=== PATIENT | female | born 1955 | race Caucasian/White ===

== ENCOUNTER → 2020-06-13 17:59 | Outpatient (CLI) | payer MEDICARE, OTHER, SELFPAY ==
--- NOTE | ~2020-06-13 | XR_ITS ---
EXAMINATION: XR foot LT min 3V DATE: 06/13/2020 18:19 INDICATION: Dorsal left forefoot pain post blunt trauma one month prior TECHNIQUE: Dorsoplantar, two oblique and lateral views of the left foot were obtained. COMPARISON: None. FINDINGS: Alignment is normal. No fracture. Minimal polyarticular osteoarthritis at several joints the mid and forefoot. Small plantar calcaneal spur. Soft tissues are unremarkable. IMPRESSION: 1. No acute osseous abnormality. Reviewed, dictated and finalized at location A. 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
== END ==
PROVIDERS: PCP Internal Medicine; Visit Provider Internal Medicine
DX: S99.922A Unspecified injury of left foot, initial encounter (principal)
CPT/HCPCS: 73630

== ENCOUNTER 2021-04-26 09:13 | Outpatient (CLI) | payer MEDICARE, OTHER, SELFPAY ==
--- NOTE | ~2021-04-26 | CT_ITS ---
EXAMINATION: CT abdomen pelvis w con DATE: 04/26/2021 10:10 INDICATION: Right abdominal and pelvic pain TECHNIQUE: Computed tomography (CT) of the abdomen and pelvis was performed with 100 cc Omnipaque 350 intravenous contrast. Automated exposure control and iterative reconstruction technique were employe d. Exam dose: 663.59 mGy-cm total exam DLP. COMPARISON: 12/01/2017 CT abdomen pelvis FINDINGS: There is bibasilar lower lobe mild dependent atelectasis. Normal heart size. No pericardial or pleural effusion. 6 mm left hepatic cyst. Status post cholecystectomy. This likely accounts for mild prominence of the bile ducts. Normal splenic size. No pancreatic mass lesion or calcification or pancreatic duct dilatation. Normal morphology of the adrenal glands. 3 mm nonobstructing right renal calculus. No other urinary tract calculus or hydroureteronephrosis. The urinary bladder, uterus and adnexal areas are essentially unremarkable although visualization is compromised to some extent by streak artifact from the right hip replacement. Normal caliber of the abdominal aorta. No intraperitoneal or retroperitoneal or pelvic mass lesion or adenopathy or ascites. Postoperative change of the right colon. No bowel obstruction or intraperitoneal free air. Small fat-containing umbilical hernia. Status post right total hip arthroplasty. There is moderate degenerative disc disease and 3 mm anterolisthesis at L3-4. There is 2 mm retrolist hesis at L4-5, with mild degenerative disc disease. No suspicious osteolytic or osteoblastic lesions are noted. IMPRESSION: 6 mm hepatic cyst Status post cholecystectomy 3 mm nonobstructing right renal calculus Postoperative change of the right colon; no bowel obstruction or free air Status post right total hip arthroplasty Reviewed, dictated and finalized at Location A. Reviewed, dictated and finalized at location B.
--- NOTE | ~2021-04-26 | US_ITS ---
EXAMINATION: US pelvic complete w TV EXAM DATE: 04/26/2021 10:05 INDICATION: Right-sided pelvic pain. Abdominal pain. TECHNIQUE: Pelvic transabdominal and transvaginal sonogram was performed. There are multiple graysca le and Doppler images available for interpretation. Correlation is made to CT abdomen pelvis same melissa e.. FINDINGS: Uterus measures 5.8 x 3.0 x 4.2 cm, and is morphologically normal. Endometrial stripe maday sures 3 mm, within normal limits. There is no free pelvic fluid. Right adnexa: The right ovary is normal in size and morphology. Left adnexa: The left ovary is normal in size and morphology. IMPRESSION: 1. Unremarkable pelvic ultrasound exam. Reviewed, dictated and finalized at location A.
[2021-04-26 10:07] LABS: Estimated Glomerular Filt Rate > 60
[2021-04-26 10:34] LABS: Basophils Percent Auto 0.4 % (0.2-1.2); Eosinophils Percent Auto 0.4 % (0-4.4); Hematocrit 40.6 % (37.0-47.0); Hemoglobin 13.4 g/dL (12.0-15.0); Immature Granulocyte Absolute 0.01 K/mm3 (0.00-0.031); Immature Granulocyte Percent A 0.2 % (0-0.5); Lymphocytes Absolute Auto 1.57 K/mm3 (0.9-3.2); Lymphocytes Percent Auto 35.1 % (18.3-44.2); Mean Corpuscular Hemoglobin 30.2 pg (26-34); Mean Corpuscular Volume 91.6 fl (80-100); Mean Platelet Volume 10.3 fl (7.4-10.4); Monocytes Absolute Auto 0.4 K/mm3 (0.1-0.6); Monocytes Percent Auto 9.8 % (2.6-8.5); Neutrophils Absolute Auto 2.4 K/mm3 (1.3-6.7); Neutrophils Percent Auto 54.1 % (45.5-73.1); Platelet Count Result 189 k/mm3 (150-375); Red Blood Count 4.43 M/mm3 (4.2-5.4); Red Cell Distribution Width 13.2 % (11.5-14.5); White Blood Count 4.5 K/mm3 (4.5-10.0)
[2021-04-26 10:58] LABS: Add Urine Microscopic? NO; Appearance Urine Clear (Clear); Bilirubin Urine Negative (Negative); Blood Urine Negative (Negative); Color Urine Colorless (Yellow); Glucose Urine UA Negative (Negative); Ketones Urine Negative (Negative); Leukocyte Esterase Ur Negative LEU/UL (NEGATIVE); Nitrate Urine Negative (Negative); Protein Urine Negative (Negative); Specific Grav Ur 1.027 (1.001-1.035); Urobilinogen Urine Negative mg/dL (<2.0)
[2021-04-26 11:04] LABS: Alanine Aminotransferase 19 U/L (4-35); Albumin Level 4.4 g/dL (3.5-5.1); Alkaline Phosphatase 58 U/L (38-126); Amylase 63 U/L (30-110); Anion Gap 6 mmol/L (8-16); Aspartate Amino Transferase 25 U/L (14-36); Bilirubin,Total 0.7 mg/dL (0.2-1.3); Blood Urea Nitrogen 13 mg/dL (7-17); Calcium 9.6 mg/dL (8.4-10.2); Carbon Dioxide 30 mmol/L (22-30); Chloride 102 mmol/L (98-107); Estimated Glomerular Filt Rate > 60; Glucose 95 mg/dL (65-110); Potassium 4.2 mmol/L (3.4-5.0); Sodium 138 mmol/L (137-145)
[2021-04-26 11:27] LABS: Lipase 45 U/L (23-300)
== END 2021-04-26 09:14 | disposition home or self-care (01) ==
LOC: ANHIMG 09:16
PROVIDERS: PCP Internal Medicine; Visit Provider Internal Medicine
DX: R10.31 Right lower quadrant pain (principal); K76.89 Other specified diseases of liver; Z90.49 Acquired absence of other specified parts of digestive tract; N20.0 Calculus of kidney; Z96.641 Presence of right artificial hip joint
CPT/HCPCS: 74177; 76830; 76856; 80053; 81003; 82150; 83690; 85025; Q9967

== ENCOUNTER → 2021-12-05 16:21 | Outpatient (CLI) | payer MEDICARE, OTHER, SELFPAY ==
--- NOTE | ~2021-12-05 | XR_ITS ---
XR knee LT min 4V 12/05/2021 16:43 Indication: Left knee pain Procedure: 5 views of the left knee Comparison: No prior studies for comparison. Findings: There is mild osteoarthritis of the left knee. No significant joint effusion. No fracture o r traumatic malalignment. Impression: 1: Mild osteoarthritis of the left knee. Reviewed, dictated and finalized at location A. Impression: 1: Mild osteoarthritis of the left knee.
== END ==
PROVIDERS: PCP Internal Medicine; Visit Provider Internal Medicine
DX: M17.12 Unilateral primary osteoarthritis, left knee (principal)
CPT/HCPCS: 73564

== ENCOUNTER 2021-12-22 11:41 | Outpatient (CLI) | payer MEDICARE, OTHER, SELFPAY ==
--- NOTE | ~2021-12-22 | US_ITS ---
EXAMINATION: US venous doppler [facility] DATE: 12/22/2021 12:13 INDICATION: Left lower limb swelling TECHNIQUE: Gore scale images without and with compression and Doppler images of the left lower extrem ity veins were obtained. COMPARISON: None FINDINGS: The left common femoral vein, profunda femoral vein, femoral vein, popliteal vein, peroneal trunk, posterior tibial veins, and greater saphenous vein are patent. IMPRESSION: 1. Patent left lower extremity veins. No evidence of deep venous thrombosis. Reviewed, dictated and finalized at location A.
== END 2021-12-22 11:42 | disposition home or self-care (01) ==
LOC: ANHIMG 11:46
PROVIDERS: PCP Internal Medicine; Visit Provider Internal Medicine
DX: M79.652 Pain in left thigh (principal); I83.90 Asymptomatic varicose veins of unspecified lower extremity
CPT/HCPCS: 93971

== ENCOUNTER 2021-12-30 12:29 | Outpatient (CLI) | payer MEDICARE, OTHER, SELFPAY ==
--- NOTE | ~2021-12-30 | MR_ITS ---
EXAMINATION: MR knee LT wo con DATE: 12/30/2021 13:29 INDICATION: Left knee pain. Possible meniscal tear. TECHNIQUE: Magnetic resonance imaging (MRI) of the left knee was performed without intravenous contra st. Sequences included coronal PD-weighted FSE, coronal PD-weighted FS FSE, sagittal T2-weighted FSE , sagittal PD-weighted FS FSE and axial PD weighted fat saturated FSE. COMPARISON: Left knee radiographs dated 12/01/2021 FINDINGS: Medial compartment: Complex tear of the body and posterior horn of the medial meniscus. Partial-thickness chondral ulcera tion involving up to 50% the cartilage thickness along the anterior weightbearing medial femoral cond yle. Small focus of likely degenerative in particular edema-like signal change along the medial rim o f the posterior weightbearing medial femoral condyle. Lateral compartment: Lateral meniscus is normal. Additional partial thickness chondral ulceration involving up to 50% the cartilage thickness at the central aspect of the lateral tibial plateau. Patellofemoral compartment: Deep chondral ulceration and fissuring with degenerative subchondral changes at the medial patellar f acet and patellar apical ridge. The cervical chains included. Tiny foci of edema-like signal change a t the medial facet and cortical irregularity and more prominent subarticular edema-like signal change at the cephalad half of the apical ridge. Small amount of more shallow partial thickness chondral fi ssuring along the medial side of the lateral patellar facet. Deep chondral fissuring with small centr al subchondral osteophytes at the inferior aspect of the medial trochlea. Ligaments and tendons: Anterior and posterior cruciate ligaments are normal. Mild thickening of the proximal medial collater al ligament without surrounding edema consistent with mild scarring related to chronic sprain. The fi bular collateral ligament complex is normal. The extensor mechanism is normal. The visualized medial and lateral hamstring tendons as well as the iliotibial band are normal. Fluid: Physiologic amount of fluid in the joint space. No loose osteochondral bodies identified. Osseous/other: Aside from the with previous noted scattered degenerative subarticular changes there is normal marrow signal throughout. No fracture or abnormal marrow replacing process. IMPRESSION: 1. Complex medial meniscal tear. 2. 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 Reviewed, dictated and finalized at location B. IMPRESSION: 1. Complex medial meniscal tear. 2. Mild tricompartmental osteoarthritis most notable for high-grade chondromala lavinia in the patellofemoral compartment.
== END 2021-12-30 12:30 | disposition home or self-care (01) ==
PROVIDERS: PCP Internal Medicine; Visit Provider Internal Medicine
DX: S83.232A Complex tear of medial meniscus, current injury, left knee, initial encounter (principal); X58.XXXA Exposure to other specified factors, initial encounter; M17.12 Unilateral primary osteoarthritis, left knee
CPT/HCPCS: 73721

== ENCOUNTER → 2022-01-10 10:18 | Outpatient (CLI) | payer MEDICARE, OTHER, SELFPAY ==
--- NOTE | ~2022-01-10 | XR_ITS ---
XR small bowel follow through DATE: 01/10/2022 16:50 INDICATION: Abdominal pain. History of 2 prior distal small bowel resections TECHNIQUE: Serial images of the abdomen after oral administration of barium. Spot images of the ileoc olic area. DAP: 8.738 0.5 minutes fluoroscopy time 14 total images COMPARISON: 04/26/2021 CT abdomen pelvis FINDINGS: Surgical clips, right upper quadrant, consistent with cholecystectomy. When Bowel sutures, right lower quadrant, consistent with ileocolic anastomosis; history of prior distal s mall bowel resections x2. Normal caliber of the small bowel. Normal mucosal pattern of the small bowel. No small bowel strictur e, obstruction, intraluminal mass lesion, ulceration. Barium reaches the ileocolic area by 4 hours IMPRESSION: Relatively slow transit of contrast material, particularly through the distal small bowel No small bowel obstruction or dilatation, stricture, ulceration or filling defect Status post cholecystectomy Status post right total hip arthroplasty Reviewed, dictated and finalized at Location A. Reviewed, dictated and finalized at location B. IMPRESSION: Relatively slow transit of contrast material, particularly through the distal small bowel No small bowel obstruction or dilatation, stricture, ulceration or filling defe ct Status post cholecystectomy Status post right total hip arthroplasty
== END ==
PROVIDERS: PCP Internal Medicine; Visit Provider Internal Medicine
DX: R10.9 Unspecified abdominal pain (principal); Z90.49 Acquired absence of other specified parts of digestive tract; Z96.641 Presence of right artificial hip joint
CPT/HCPCS: 74250

== ENCOUNTER 2022-03-05 01:44 | Day surgery (SDC) | payer MEDICARE, OTHER, SELFPAY ==
--- NOTE | 2022-02-27 12:37 | PC.NURSE ---
Report to the Outpatient Waiting Room, entrance under the green pavilion located off [facility], at time on date . OR Time: . - You and your visitor will be asked to self-screen and do not enter if you have any COVID symptoms. - Only one visitor and NO children visitors are allowed at this time. - The patient visitor is requested to leave or wait in car when not with patient due to restrictions. - A mask is required within the hospital. Patients may have clear liquids (water, carbonated beverages, clear teas, apple juice) until 3 hours prior to surgery with a maximum of 20 ounces. - No food from midnight until time of surgery - Infants may have breast milk until 4 hours before surgery, formula 6 hours prior to surgery. - Children will be allowed to drink immediately following surgery. If applicable, please bring a bottle or sippy cup to assist with drinking. Juice, water, soda, and popsicles are readily available. For infants on formula, please bring formula the day of surgery. Pacifiers are allowed. Take the following medications with a SIP of water the morning of surgery: ___LEVOTHYROXINE AND LIOTHYRONINE Medications to discontinue per physician ___ALL VITAMINS/SUPPLEMENTS/PROBIOTIC 3 DAYS PRE OP Date to take last dose_03/01/22 Please no make-up, nail romanian, hairspray, perfume, deodorant, or body powder the day of surgery. No jewelry (including any body piercings) or valuables the day of surgery, leave them at home. Please take a shower or bath the night before, or the morning of, surgery with an antibacterial soap. Wear comfortable, loose fitting clothing. Children are encouraged to wear pajamas. - Jewelry must be removed prior to entering the operating room. Rings and piercings that are not removed may be cut off. - The hospital will not accept responsibility for valuables. - Please leave all valuables, including medications, at home the day of surgery. If you are going home after surgery, a licensed front end driver must drive you home. - NO public transportation without another adult. - We recommend that an adult stay with you for 24 hours following discharge. - We also recommend that you do not drive, make important decision, drink alcoholic beverages, or take any drugs that were not prescribed by your health care provider for at least 24 hours after your discharge time. For Pediatric surgeries, we recommend two adults accompany the child home (only one inside the building at this time). Follow any additional instructions given to you from your surgeon. If you or anyone in your household have experienced Covid symptoms in the past week, please notify your surgeon or the nurse liaison at the phone number below for possible testing. Telephone instructions given to _PATIENT and asked if any additional questions and then verbalized understanding. Patient advised to call surgeon office or pre surgery nurse liaison [phone] if any additional questions.
[2022-02-27 12:43] VITALS: BMI 27.2
[2022-03-05] VITALS (8 sets, daily range): BP systolic 125–143; BP diastolic 69–86; PULSE 46–72; RESP 12–20; TEMP 36.2–36.7; O2SAT 99–100
--- NOTE | 2022-03-05 07:46 | ECG_ITS ---
Measurements Intervals [place] Rate: 59 P: 0 CO: 147 QRS: -2 QRSD: 98 T: 53 QT: 411 QTc: 410 Interpretive Statements SINUS BRADYCARDIA BORDERLINE ECG NO PREVIOUS ECG AVAILABLE FOR COMPARISON Electronically Signed On 03-05-2022 16:21:15 CDT by Crescencio Cordero M.D.
--- NOTE | 2022-03-05 08:10 | WPDANESEPPF ---
Anes - Initial Pre Proc Eval Procedure: Operation Date: 03/05/22 09:30 Proposed Procedures p Left Knee Arthroscopy with Meniscectomy - Charli Odonnell MD Date/Time: 03/05/22 08:10 Surgeon: Charli Odonnell MD Pre Op Diagnosis: Lt Knee Medial Meniscus Tear Patient Data Age: 66 Gender: F Height: 1.68 m Weight: 77.2 kg Last Vital Signs Temp 36.2 C L 03/05/22 07:45 Pulse 60 03/05/22 07:45 Resp 20 03/05/22 07:45 BP 125/70 03/05/22 07:45 Pulse Ox 100 03/05/22 07:45 O2 Del Method Room Air 03/05/22 07:45 Allergies Allergy/AdvReac Type Severity Reaction Status Date / Time Sulfa (Sulfonamide Allergy Mild Rash Verified 03/05/22 07:39 Antibiotics) Home Medications Medication Instructions Recorded Confirmed Type levothyroxine 100 mcg tablet 100 mcg PO DAILY 05/15/19 03/05/22 History liothyronine 50 mcg tablet 50 mcg PO DAILY 05/15/19 03/05/22 History ascorbic acid (vitamin C) 500 mg 500 mg PO DAILY 02/27/22 03/05/22 History tablet ibuprofen 400 mg tablet 400 mg PO Q6H PRN Pain 02/27/22 03/05/22 History lactobacillus combination no.8 3 3 cell PO DAILY 02/27/22 03/05/22 History billion cell capsule multivitamin 1 tablet PO DAILY 02/27/22 03/05/22 History Patient hx anesthesia problems: none Family hx anesthesia problems: none Results Review: All pre-operative results and documents have been reviewed as part of the pre-operative evaluation. [facility] Past Medical History Medical History (Updated 03/05/22 @ 08:10 by Jose M Woo DO) Heart murmur Hypothyroidism IBS (irritable bowel syndrome) Tear of medial meniscus of left knee Thyroid disorder TIA (transient ischemic attack) Surgical History Surgical History History of bowel resection History of cholecystectomy History of hip replacement Family History Family History Father Heart disease Hypertension Mother Hypertension Family history of thyroid disease Sibling Family history of thyroid disease Grandparent Hypertension Heart disease Family history of cancer Social History Social History Smoking status: Never smoker Alcohol intake: current Drinks per week: 4 Substance use: never Living arrangements: with family 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 Informed Consent: The patient's anesthetic plan and its attendant risks and benefits were discussed with the patient/family/POA. Questions were solicited and answers provided to the satisfaction of the patient/family/POA.
[2022-03-05] MEDS: ACETAMINOPHEN 500 MG TABLET 1000 MG PO (08:23)
[2022-03-05] MEDS: LACTATED RINGERS 1,000 ML 30 ML IV CONT (08:30)
[2022-03-05] MEDS: KETOROLAC 15 MG/ML VIAL (*BKC) IV PUSH (08:32)
--- NOTE | 2022-03-05 08:39 | WPDHPUPDATE1 ---
History and Physical Update Update Date/Time: 03/05/22 08:39 History and Physical has been reviewed, including an updated exam of the patient. There are NO changes in the patient's condition. Risks, benefits, and alternatives have been discussed and questions answered. Patient agrees to proceed with procedure.
[2022-03-05] MEDS: ceFAZolin 2 GM/D5W 50 ML 2 GM/50 ML BAG IVPB (09:07)
--- NOTE | 2022-03-05 10:10 | W.PM.PROC2 ---
Procedure Note - Detailed Date of Procedure 03/05/22 Pre-op Diagnosis Lt Knee Medial Meniscus Tear Post-op Diagnosis Other (Left knee medial and lateral meniscal tears) Procedure Performed Left knee arthroscopy with partial medial lateral meniscectomy. Partial synovectomy. Surgeon Charli Odonnell MD Anesthesia General Description of Procedure The patient was identified and proper site identified and she was taken to the operating room, transferred to the OR table placing her supine taking care to pad the torso and extremities. After general anesthetic induction and intubation, a nonsterile tourniquet was placed high on the left thigh but was not used. The left lower extremity was positioned, prepped and draped in usual sterile fashion. 10 cc of 1% lidocaine was injected into the subcutaneous tissue in the area of the portals at start of the procedure, and an additional 10 at the end. The portals were established and the arthroscopy was carried out. Articular cartilage in the medial and anterior compartments had extensive grade 2, bordering on grade 3 changes. Loose fibrillated cartilage was gently debrided with the shaver. Lateral articular cartilage was in good shape. There was fraying throughout the apex of the lateral meniscus which was contoured back to a more stable meniscal rim with the ArthroCare Wand. Anterior posterior cruciate ligaments are in continuity. Gutters were clear. There was some exuberant inflamed synovium overlying the anterior horn of the medial meniscus which was getting impinged as the knee was taken through range of motion. This was debrided with a shaver then the ArthroCare Wand for hemostasis. There was complex tearing of the medial meniscus from the posterior horn into the midbody. This was contoured back to a stable rim with basket forceps and a shaver. The knee was flushed with a copious amount of arthroscopic fluid and equipment was removed. Portals were closed with three O nylon suture and a sterile dressing was applied. She tolerated the procedure well, was awakened, extubated and taken to recovery area in stable condition. There were no known intraoperative complications. Estimated blood loss was negligible; she received perioperative antibiotics. Estimated Blood Loss 10 Tourniquet Time 0 Drains No Packing No Pathology None sent Complications No immediate complications Condition Stable Disposition PACU
[2022-03-05] MEDS: fentaNYL CITRATE INJ (*CRX) 100 MCG/2 ML VIAL 25 MCG IV PUSH ×2 (10:28→10:31)
== END 2022-03-05 12:00 | disposition home or self-care (01) ==
PROVIDERS: PCP Internal Medicine; Visit Provider Orthopaedic Surgery
PROC: (CPT 29870; principal; 2022-03-05 09:30)
DX: M23.212 Derangement of anterior horn of medial meniscus due to old tear or injury, left knee (principal); M17.12 Unilateral primary osteoarthritis, left knee; M65.862 Other synovitis and tenosynovitis, left lower leg; K58.9 Irritable bowel syndrome, unspecified; R01.1 Cardiac murmur, unspecified; R00.1 Bradycardia, unspecified; Z86.73 Personal history of transient ischemic attack (TIA), and cerebral infarction without residual deficits; E03.9 Hypothyroidism, unspecified
CPT/HCPCS: 29880; 93005; A9270; J0690; J1100; J1885; J2250; J2405; J2704; J3010; J7120

== ENCOUNTER 2022-03-14 08:30 | Outpatient (RCR) | payer MEDICARE, OTHER, SELFPAY ==
--- NOTE | 2022-03-07 11:26 | PTOPEVAL ---
Thank you for referring Paula Bosch to [facility].? She is scheduled to be seen for therapy? 2 x/week for 4 weeks. Please review, sign, date and return this plan of care PILI. I agree with and certify that the following plan of care is medically necessary. Referring Physician Date Attending Provider: Charli Odonnell MD Past Medical History Source of Past Medical History Recalled from Previous Visit, Confirmed with Patient/Family Neurological History Hx Transient Ischemic Attacks (TIA) Yes: no residual effects Cardiovascular History Hx Other Cardiac Disorders Yes: DR CHOI EVERY 6 MONTHS- LOOP RECORDER IN PLACE SINCE 2019 Respiratory History Hx COVID-19 Yes: 01/20/2022 Gastrointestinal History Hx Bowel Surgery Yes: 2001 BOWEL RESECTION R/T OBSTRUCTION Hx Cholecystectomy Yes Hx Irritable Bowel Yes Hx Ulcer Yes Genitourinary History Hx Genitourinary Disorders No Significant History Musculoskeletal History Hx Fractures Yes: HAND R Hx Joint Replacement Yes: 2009 R THR Hx Other Musculoskeletal Disorders Yes Hematological History Hx Blood Transfusions Yes: POST BOWEL RESECTION Endocrine History Hx Hypothyroidism Yes HEENT History Hx HEENT Disorders No Significant History Integumentary History Hx Skin Disorders No Significant History Reproductive History Hx Post Menopausal Yes Psychosocial History Hx Psychiatric Disorders No Significant History Pain History History of Any Previous or Ongoing No Significant History Instance of Pain Anesthesia History Hx Anesthesia Reactions No Significant History Other History Hx Implanted Device Yes: cardiac LOOP RECORDER Evaluation Information Diagnosis s/p L knee arthroscopy with meniscectomy Onset 03-05-22 Subjective Information fell on October 2021, pain since Query Text:As Reported By Patient/ then; use crutches since Family surgery; have been using ice and elevation; Prior Level of Function Activity Level (Last 3 Months) 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
--- NOTE | 2022-03-14 14:18 | PCPTNOTE ---
PHYSICAL THERAPY DISCHARGE REPORT 03-14-22 Attending Provider: Charli Odonnell MD Patient:Paula Bosch Date of :1955 Mrs. Bosch has received 3 PT sessions, from March 07 to today, s/p L knee arthroscopy. At today's session, she reports she is doing well, not having any pain in her knee, doing all of the home exercises and wants to be discharged from therapy. Reviewed her HEP and the goals have been met. Discharge PT at this time. Thank you for referring this patient to [facility]. Please review, sign, date and return this discharge summary PILI. I have been updated about the patient's current status and I agree with discharge from the above service at this time. Referring Physician Date
== END 2022-03-15 08:55 | disposition home or self-care (01) ==
LOC: ANHPT 08:30
PROVIDERS: PCP Internal Medicine; Visit Provider Orthopaedic Surgery
DX: Z48.89 Encounter for other specified surgical aftercare (principal); Z98.890 Other specified postprocedural states
CPT/HCPCS: 97110; 97161; 97530

== ENCOUNTER → 2022-03-22 17:37 | Outpatient (CLI) | payer MEDICARE, OTHER, SELFPAY ==
--- NOTE | ~2022-03-22 | XR_ITS ---
EXAMINATION:XR_CERV2-3V_CR, XR thoracic spine 3V DATE: 03/22/2022 18:11 INDICATION: Mid back pain. Leaning of the scapula. TECHNIQUE: 1. AP, lateral, lateral swimmers and odontoid views of the cervical spine were obtained. 2. AP, lateral and lateral swimmer's views of the thoracic spine were obtained. COMPARISON: Two-view chest radiograph dated 08/08/2015 FINDINGS: Cervical spine: Mild kyphosis in the mid cervical spine. One-2 mm retrolisthesis C5 on C6. Odontoid is intact. Alejandra l atlantoaxial interval. Vertebral body heights are normal. Severe disc height loss with degenerative endplate changes at C5-C6 and C6-C7. Uncovertebral osteoarthritis severe on the left and moderate on the right at C6-C7 and moderate bilaterally at C5-C6. Mild disc height loss at C4-C5 and C7-T1. Mult ilevel mild to moderate cervical facet osteoarthritis. Prevertebral soft tissues are normal. Thoracic spine: 12 degree dextroscoliosis measured between T5 and T12. Sagittal alignment is normal. Unchanged mild a nterior wedging of a midthoracic vertebral body, likely T7. Remaining vertebral body heights are norm al. Multilevel moderate disc height loss throughout the thoracic spine. Cholecystectomy clips in the upper abdomen. Visualized portion of the lungs are clear with no pleural effusion or pneumothorax. Ca rdiomediastinal silhouette is normal. 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 IMPRESSION: 1. Severe cervical and moderate thoracic spondylosis. 2. Stable appearance of a chronic midthoracic compression fracture with 20% anterior vertebral body h eight loss, likely T7. Reviewed, dictated and finalized at location A. IMPRESSION: 1. Severe cervical and moderate thoracic spondylosis. 2. Stable appearance of a chronic midthoracic compression fracture with 20% ant erior vertebral body height loss, likely T7.
== END ==
PROVIDERS: PCP Internal Medicine; Visit Provider Internal Medicine
DX: M95.8 Other specified acquired deformities of musculoskeletal system (principal); M47.892 Other spondylosis, cervical region; M47.894 Other spondylosis, thoracic region
CPT/HCPCS: 72040; 72072

== ENCOUNTER 2022-04-13 07:40 | Outpatient (CLI) | payer MEDICARE, OTHER, SELFPAY ==
--- NOTE | ~2022-04-13 | MR_ITS ---
EXAMINATION: MR thoracic spine wo con DATE: 04/13/2022 08:16 INDICATION: Mid back pain. TECHNIQUE: Magnetic resonance imaging (MRI) of the thoracic spine was performed without intravenous c ontrast. COMPARISON: Thoracic spine radiographs 03/22/2022 FINDINGS: There is 6 degrees dextrocurvature of thoracic spine. There is mild chronic wedging of T5-T 9 vertebral bodies and T11 vertebral body. There are Schmorl's nodes at multiple levels. There is mil dly decreased disc height at multiple levels. There is moderately decreased disc height at T5-T6, T6- T7, and T7-T8. There is multilevel facet joint osteoarthritis. On the right, there is mild neural for aminal stenosis at T1-T2, T2-T3, and T4-T5. On the left, there is mild neural foraminal stenosis at T 1-T2. At T2-T3, there is a central extrusion with mild central canal stenosis. At T3-T4, there is a c entral extrusion with mild central canal stenosis. At T5-T6, there is a left central extrusion with m ild central canal stenosis and ventral indentation of the spinal cord. At T6-T7, there is a right darlene tral extrusion with mild central canal stenosis and ventral indentation of the spinal cord. At T7-T8, there is a central extrusion with mild central canal stenosis and ventral indentation of the spinal cord. At T8-T9, there is a right central extrusion with mild central canal stenosis and ventral inden tation of the spinal cord. At T9-T10, there is a left central extrusion with mild central canal steno sis. At T10-T11, there is a right central extrusion with mild central canal stenosis. The spinal cord signal intensity is normal. IMPRESSION: 1. Moderate thoracic spondylosis. Reviewed, dictated and finalized at location A.
== END 2022-04-13 07:41 | disposition home or self-care (01) ==
PROVIDERS: PCP Internal Medicine; Visit Provider Internal Medicine
DX: M47.894 Other spondylosis, thoracic region (principal)
CPT/HCPCS: 72146

== ENCOUNTER 2022-11-15 14:46 | Outpatient (CLI) | payer MEDICARE, OTHER, SELFPAY ==
--- NOTE | ~2022-11-15 | XR_ITS ---
EXAMINATION: XR chest 2V Exam Date/Time: 11/15/2022 15:10 CDT HISTORY: PNEUMONIA, continues with cough, SOB; non smoker Comparison: 08/08/2015. RESULT: Lines, tubes, and devices: Loop recorder. Cholecystectomy clips. Lungs and pleura: Biapical scarring. Diffuse mild reticulonodular opacities. Cardiomediastinal silhouette: Stable. Other: No acute osseous or upper abdominal finding. IMPRESSION: Pulmonary opacities may represent senescent change and/or respiratory bronchiolitis. Reviewed, dictated and finalized at location K. IMPRESSION: Pulmonary opacities may represent senescent change and/or respiratory bronchiol itis.
[2022-11-15 15:38] LABS: Basophils Percent Auto 0.7 % (0.2-1.2); Eosinophils Percent Auto 0.5 % (0-4.4); Hematocrit 41.9 % (37.0-47.0); Hemoglobin 13.7 g/dL (12.0-15.0); Immature Granulocyte Absolute 0.02 K/mm3 (0.00-0.031); Immature Granulocyte Percent A 0.3 % (0-0.5); Lymphocytes Absolute Auto 2.04 K/mm3 (0.9-3.2); Lymphocytes Percent Auto 34.6 % (18.3-44.2); Mean Corpuscular HGB Conc 32.7 g/dl (32-36); Mean Corpuscular Hemoglobin 30.4 pg (26-34); Mean Corpuscular Volume 92.9 fl (80-100); Mean Platelet Volume 10.1 fl (7.4-10.4); Monocytes Absolute Auto 0.5 K/mm3 (0.1-0.6); Monocytes Percent Auto 7.8 % (2.6-8.5); Neutrophils Absolute Auto 3.3 K/mm3 (1.3-6.7); Neutrophils Percent Auto 56.1 % (45.5-73.1); Platelet Count Result 195 k/mm3 (150-375); Red Blood Count 4.51 M/mm3 (4.2-5.4); Red Cell Distribution Width 13.5 % (11.5-14.5); White Blood Count 5.9 K/mm3 (4.5-10.0)
[2022-11-15 15:58] LABS: Alanine Aminotransferase 23 U/L (6-35); Albumin Level 4.4 g/dL (3.5-5.1); Alkaline Phosphatase 67 U/L (38-126); Anion Gap 4 mmol/L (8-16); Aspartate Amino Transferase 26 U/L (14-36); Bilirubin,Total 0.5 mg/dL (0.2-1.3); Blood Urea Nitrogen 12 mg/dL (7-17); Calcium 9.6 mg/dL (8.4-10.2); Carbon Dioxide 31 mmol/L (22-30); Chloride 103 mmol/L (98-107); Estimated Glomerular Filt Rate > 60; Glucose 100 mg/dL (65-110); Sodium 138 mmol/L (137-145)
== END 2022-11-15 14:47 | disposition home or self-care (01) ==
PROVIDERS: PCP Internal Medicine; Visit Provider Internal Medicine
DX: J18.9 Pneumonia, unspecified organism (principal); R06.02 Shortness of breath
CPT/HCPCS: 36415; 71046; 80053; 85025

== ENCOUNTER 2023-05-23 12:14 | Outpatient (CLI) | payer MEDICARE, OTHER, SELFPAY ==
--- NOTE | ~2023-05-23 | XR_ITS ---
Left Knee Technique: AP, lateral, and sunrise views were obtained. Clinical History: Pain Findings: No fracture or dislocation is seen. Osseous alignment is anatomic. Minimal patellar spurrin g noted. Soft tissues are unremarkable. No joint effusion is seen. Impression: Minimal patellar spurring. Reviewed, dictated and finalized at location . RAFT MECH[employer]IC STRUCTURES Impression: Minimal patellar spurring.
--- NOTE | ~2023-05-23 | CT_ITS ---
EXAMINATION: CT brain wo con INDICATION: Head injury COMPARISON: None TECHNIQUE: Standard unenhanced head CT. The dose-length product (DLP) was 681.00 mGy-cm. The mA was a djusted according to patient size. Iterative reconstruction technique was employed. FINDINGS: No intracranial hemorrhage, acute infarction, or abnormal mass lesion. The ventricles are n ormal. No abnormal mass effect or midline shift. The duncan-white matter differentiation is normal. The basal cisterns are patent. The orbits are normal. The paranasal sinuses, mastoids and calvarium are normal. IMPRESSION: 1. No acute intracranial abnormality. Reviewed, dictated and finalized at location L. ODITY DIRECTOR
== END 2023-05-23 12:15 | disposition home or self-care (01) ==
PROVIDERS: PCP Internal Medicine; Visit Provider Internal Medicine
DX: S89.92XA Unspecified injury of left lower leg, initial encounter (principal); S09.90XA Unspecified injury of head, initial encounter; X58.XXXA Exposure to other specified factors, initial encounter
CPT/HCPCS: 70450; 73564

== ENCOUNTER 2023-05-24 12:34 | Emergency (ER) | payer MEDICARE, OTHER, SELFPAY ==
--- NOTE | ~2023-05-24 | CT_ITS ---
Noncontrast CT scan of the cervical spine Technique: Multiple contiguous axial [address] images of the cervical spine were obtained and rec onstructed in 2D sagittal and coronal planes on the acquisition scanner. Dose reduction technique was used on this scan by utilizing automated exposure control, adjustment of the mA and/or kV according to patient size. The dose-length product (DLP) was 152.34 mGy-cm. Clinical History: Pain Findings: No fracture or subluxation. There is mild reversal of the normal cervical lordosis. There i s moderate to advanced degenerative disc narrowing at C5-C6 and C6-C7. There are scattered facet join t degenerative changes in the cervical spine. Probable mild left neural foraminal narrowing at C5-C6 and C6-C7. No prevertebral soft tissue swelling. Impression: No fracture or subluxation of the cervical spine. Reviewed, dictated and finalized at [facility]. IC SCHEDULER Impression: No fracture or subluxation of the cervical spine.
[2023-05-24 12:36] VITALS: BP 150/84; PULSE 64; RESP 18; TEMP 36.4; O2SAT 100
--- NOTE | 2023-05-24 13:20 | ED.NECK ---
HPI - Neck Pain/Injury General Chief Complaint: Neck Pain/Injury Stated Complaint: neck after fall 10 days ago Time Seen by Provider: 05/24/23 12:54 History of Present Illness HPI Narrative: Patient is a 67-year-old female presenting with neck pain. States that she fell about 10 days ago and struck the left side of her head. She continues to have a headache and episodes of dizziness so an outpatient CT brain was obtained yesterday which was normal. She continues to have right-sided neck pain especially whenever she lays down in bed. States that the pain is mostly on the lateral aspect of her neck and will radiate into her shoulder and arm. She saw a chiropractor today who advised that she come in for an x-ray. States that as long as she is not laying down the pain is pretty mild. She has had intermittent paresthesias in her right arm but no weakness or numbness. No further injuries or complaints. Related Data Home Medications Medication Instructions Recorded Confirmed levothyroxine 100 mcg tablet 100 mcg PO DAILY 05/15/19 03/20/22 liothyronine 50 mcg tablet 50 mcg PO DAILY 05/15/19 03/20/22 ascorbic acid (vitamin C) 500 mg 500 mg PO DAILY 02/27/22 03/20/22 tablet ibuprofen 400 mg tablet 400 mg PO Q6H PRN Pain 02/27/22 03/20/22 multivitamin 1 tablet PO DAILY 02/27/22 03/20/22 Allergies Allergy/AdvReac Type Severity Reaction Status Date / Time Sulfa (Sulfonamide Allergy Mild Rash Verified 03/20/22 08:34 Antibiotics) Review of Systems Review of Systems: All systems reviewed & are unremarkable except as noted in HPI and below PMFSH Past Medical History Medical History Heart murmur Hypothyroidism IBS (irritable bowel syndrome) Thyroid disorder TIA (transient ischemic attack) Surgical History Surgical History History of bowel resection History of cholecystectomy History of hip replacement Tear of medial meniscus of left knee Partial meniscectomy March 05, 2022 Family History Family History Father Heart disease Hypertension Mother Hypertension Family history of thyroid disease Sibling Family history of thyroid disease Grandparent Hypertension Heart disease Family history of cancer Social History Social History Smoking status: Never smoker Alcohol intake: current Drinks per week: 4 Substance use: never Living arrangements: with family Occupation/Education: occupation 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 ENT: Grossly unremarkable NECK: Soft neck brace in place, no midline tenderness, she is pretty tender along the right lateral aspect of her neck extending into the trapezius CHEST: No respiratory distress. HEART: Regular rate and rhythm. Normal peripheral pulses. ABDOMEN: Nondistended EXTREMITIES: Normal range of motion. No edema. SKIN: Warm, dry, no rash. NEURO: Alert and oriented x3. 5 out of 5 strength in both upper extremities, no sensory deficits though she states that her right hand feels different from her left PSYCH: Normal mood and affect. Course Vital Signs Vital signs: Vital Signs Temperature 97.6 F 05/24/23 12:36 Pulse Rate 64 05/24/23 12:36 Respiratory Rate 18 05/24/23 12:36 Blood Pressure 150/84 H 05/24/23 12:36 Pulse Oximetry 100 05/24/23 12:36 Oxygen Delivery Room Air 05/24/23 12:36 Temperature 97.6 F 05/24/23 12:36 Pulse Rate 65 05/24/23 15:15 Respiratory Rate 18 05/24/23 15:15 Blood Pressure 148/83 H 05/24/23
[2023-05-24 15:15] VITALS: BP 148/83; PULSE 65; RESP 18; O2SAT 100
== END 2023-05-24 15:16 | disposition home or self-care (01) ==
PROVIDERS: Emergency Provider Emergency Medicine; PCP Internal Medicine
DX: S16.1XXA Strain of muscle, fascia and tendon at neck level, initial encounter (principal); E03.9 Hypothyroidism, unspecified; Z86.73 Personal history of transient ischemic attack (TIA), and cerebral infarction without residual deficits; W19.XXXA Unspecified fall, initial encounter
CPT/HCPCS: 72125; 99284

== ENCOUNTER 2023-08-09 15:13 | Outpatient (CLI) | payer MEDICARE, OTHER, SELFPAY ==
--- NOTE | ~2023-08-09 | XR_ITS ---
XR knee RT min 4V 08/09/2023 15:42 Indication: Right knee pain Procedure: 5 views right knee Comparison: No prior studies for comparison. Findings: No fracture, subluxation or dislocation. There is chondrocalcinosis. No significant joint e ffusion. There is mild osteoarthritis of the right knee. Impression: 1: Mild osteoarthritis of the right knee. Reviewed, dictated and finalized at location B. MANAGER Impression: 1: Mild osteoarthritis of the right knee.
== END 2023-08-09 15:14 | disposition home or self-care (01) ==
LOC: ANHIMG 15:17
PROVIDERS: PCP Internal Medicine; Visit Provider Internal Medicine
DX: M17.11 Unilateral primary osteoarthritis, right knee (principal)
CPT/HCPCS: 73564

== ENCOUNTER → 2023-08-19 10:06 | Outpatient (CLI) | payer MEDICARE, OTHER, SELFPAY ==
--- NOTE | ~2023-08-19 | MR_ITS ---
EXAMINATION: MR knee RT wo con DATE: 08/19/2023 10:39 INDICATION: Right knee pain TECHNIQUE: Magnetic resonance imaging (MRI) of the right knee was performed without intravenous contr ast. Sequences included coronal PD-weighted FSE, coronal PD-weighted FS FSE, sagittal T2-weighted FS E, sagittal PD-weighted FS FSE and axial PD weighted fat saturated FSE. COMPARISON: None. FINDINGS: Medial compartment: There is medial extrusion of the medial meniscal body with complex tear of the body and posterior hor n of the medial meniscus. Small region of deep chondral fissuring without degenerative subchondral ch anges at the anteriormost margin of the weightbearing medial femoral condyle. There is mild partial-t hickness cartilage loss with smooth chondral surface along the anterior medial tibial plateau. Lateral compartment: Lateral meniscus is normal. Small region of mild partial-thickness chondral ulceration at the central aspect of the lateral tibial plateau. Patellofemoral compartment: Chondral ulceration and deep fissuring with underlying subarticular edema-like signal change in the c ephalad aspect of the patellar apical ridge and at the lateral margin of the lateral patellar facet. Partial-thickness chondral ulceration without degenerative subchondral changes at the medial patellar facet. Small focus of deep chondral ulceration with underlying small central subchondral osteophytes at the inferior aspect of the medial trochlea. Ligaments and tendons: Anterior and posterior cruciate ligaments are normal. The medial collateral ligament and fibular john ateral ligament complex are normal. The extensor mechanism is normal. The visualized medial and later al hamstring tendons as well as the iliotibial band are normal. Fluid: Physiologic amount of fluid in the joint space. No loose osteochondral bodies identified. There is in creased fluid signal in the soft tissues along the deep and superficial margins of the otherwise norm al-appearing pes anserinus which could be either reactive edema related to the nearby medial meniscal tear, pes anserinus bursitis or sequela of posttraumatic low-grade strain. Osseous/other: Bone alignment is normal. No fracture or pathologic marrow replacing process. IMPRESSION: 1. Complex medial meniscal tear. 2. Mild tricompartmental osteoarthritis with high-grade chondromalacia in the patellofemoral compartm ent and with small regions of moderate grade chondromalacia in the medial and patellofemoral compartm ents. 3. Increased fluid signal along the deep and superficial margins of the pes anserinus most likely pavel ctive edema related to the medial meniscal tear with differential including pes anserinus bursitis or posttraumatic low-grade strain of of the tendons of the pes anserinus. Reviewed, dictated and finalized at location A. Y PILOT IMPRESSION: 1. Complex medial meniscal tear. 2. Mild tricompartmental osteoarthritis with high-grade chondromalacia in the p atellofemoral compartment and with small regions of moderate grade chondromalac ia in the medial and patellofemoral compartments. 3. Increased fluid signal along the deep and superficial margins of the pes ans erinus most likely reactive edema related to the medial meniscal tear with diff erential including pes anserinus bursitis or posttraumatic low-grade strain of of the tendons of the pes anserinus.
== END ==
PROVIDERS: PCP Orthopaedic Surgery; Visit Provider Internal Medicine
DX: M17.11 Unilateral primary osteoarthritis, right knee (principal); S83.231A Complex tear of medial meniscus, current injury, right knee, initial encounter; X58.XXXA Exposure to other specified factors, initial encounter
CPT/HCPCS: 73721

== ENCOUNTER 2023-08-23 14:01 | Outpatient (CLI) | payer MEDICARE, OTHER, SELFPAY ==
--- NOTE | ~2023-08-23 | XR_ITS ---
EXAMINATION: XR knee LT 3V DATE: 08/23/2023 14:27 INDICATION: Unilateral primary osteoarthritis, left knee. TECHNIQUE: 3 views of left knee including weightbearing views were obtained. COMPARISON: Left knee radiographs 05/23/2023 FINDINGS: Bone alignment is normal. No fracture. There is moderate osteoarthritis of medial compartme nt and mild osteoarthritis of patellofemoral compartment. No knee joint effusion. IMPRESSION: 1. Moderate left knee osteoarthritis. Reviewed, dictated and finalized at location E. S FLOOR ASSOCIATE
== END 2023-08-23 14:02 | disposition home or self-care (01) ==
LOC: ANHIMG 14:02
PROVIDERS: Visit Provider Orthopaedic Surgery
DX: M17.12 Unilateral primary osteoarthritis, left knee (principal)
CPT/HCPCS: 73562

== ENCOUNTER 2023-09-26 01:48 | Day surgery (SDC) | payer MEDICARE, OTHER, SELFPAY ==
[2023-09-19 15:19] VITALS: BMI 27.5
--- NOTE | 2023-09-19 15:25 | PC.NURSE ---
Report to the Outpatient Waiting Room, entrance under the green pavilion located off [facility], at time __1130____ on date __09/26/23 . Planned Procedure Time: __1:30 . Time changes happen often and if your time is changed the preop area will call you the afternoon before. - You and your visitor will be asked to self-screen and do not enter if you have any COVID symptoms. - A mask is optional within the hospital at this time. Patients may have clear liquids (water, carbonated beverages, clear teas, apple juice) until 3 hours prior to surgery (1030 AM) with a maximum of 20 ounces. - No food from midnight until time of surgery - Infants may have breast milk until 4 hours before surgery, infant formula 6 hours prior to surgery. - Children will be allowed to drink immediately following surgery. If applicable, please bring a bottle or sippy cup to assist with drinking. Juice, water, soda, and popsicles are readily available. For infants on formula, please bring formula the day of surgery. Pacifiers are allowed. Take the following medications with a SIP of water the morning of surgery: __LEVOTHYROXINE, LIOTHYRONINE, & TYLENOL/TRAMADOL IF NEEDED__ DO NOT STOP ANY OF YOUR OTHER PRESCRIPTION MEDICATIONS PRIOR TO SURGERY ?EXCEPT THE FOLLOWING Medications to discontinue per DR. BAY - _IBUPROFEN 7DAYS PRIOR TO SURGERY, Date to take last dose *PT STATS LAST DOSE 09/13/23_ Medications to discontinue per ANESTHESIA - _MULTIVITAMIN / SUPPLEMENTS 3 DAYS PRIOR TO SURGERY, Date to take last dose 09/22/23_ Please no make-up, nail english, hairspray, perfume, deodorant, or body powder the day of surgery. No jewelry (including any body piercings) or valuables the day of surgery, leave them at home. Please take a shower or bath the night before, or the morning of, surgery with an antibacterial soap. Wear comfortable, loose fitting clothing. Children are encouraged to wear pajamas. - Jewelry must be removed prior to entering the operating room. Rings and piercings that are not removed may be cut off. - The hospital will not accept responsibility for valuables. - Please leave all valuables, including medications, at home the day of surgery. If you are going home after surgery, a licensed pharmacy delivery driver must drive you home. - NO public transportation without another adult if you receive anesthesia. - We recommend that an adult stay with you for 24 hours following discharge. - We also recommend that you do not drive, make important decision, drink alcoholic beverages, or take any drugs that were not prescribed by your health care provider for at least 24 hours after your discharge time. For Pediatric surgeries, we recommend two adults accompany the child home. Follow any additional instructions given to you from your surgeon. If you or anyone in your household have experienced Covid symptoms in the past week, please notify your surgeon or the nurse liaison at the phone number below for possible testing. Telephone instructions given to PT and asked if any additional questions and then verbalized understanding. Patient advised to call surgeon office or pre surgery nurse liaison [phone] if any additional questions.
--- NOTE | 2023-09-25 11:03 | WPDANESEPPF ---
Anes - Initial Pre Proc Eval Procedure: Operation Date: 09/26/23 13:30 Proposed Procedures p Right Knee Arthroscopy, Partial Medial Meniscectomy - Parish Erwin MD Date/Time: 09/25/23 11:03 Surgeon: Parish Erwin MD Pre Op Diagnosis: rt knee acute medial meniscal tear Patient Data Age: 67 Gender: F Height: 1.65 m Weight: 75 kg Allergies Allergy/AdvReac Type Severity Reaction Status Date / Time Sulfa (Sulfonamide Allergy Mild Rash Verified 09/26/23 11:35 Antibiotics) Home Medications Medication Instructions Recorded Confirmed Type levothyroxine 100 mcg tablet 100 mcg PO DAILY 05/15/19 09/19/23 History liothyronine 50 mcg tablet 50 mcg PO DAILY 05/15/19 09/19/23 History ascorbic acid (vitamin C) 500 mg 500 mg PO DAILY 02/27/22 09/19/23 History tablet ibuprofen 400 mg tablet 400 mg PO Q6H PRN Pain 02/27/22 09/19/23 History multivitamin 1 tablet PO DAILY 02/27/22 09/19/23 History acetaminophen 325 mg tablet 500 mg QID PRN Pain 09/19/23 09/19/23 History (Tylenol) hydrocodone 5 mg-acetaminophen 325 1 - 2 tablet PO Q4-6H PRN pain #30 09/26/23 Rx mg tablet tabs Patient hx anesthesia problems: none Family hx anesthesia problems: none Results Review: All pre-operative results and documents have been reviewed as part of the pre-operative evaluation. [facility] Past Medical History Medical History Arthritis of left knee Heart murmur Hypothyroidism IBS (irritable bowel syndrome) Thyroid disorder TIA (transient ischemic attack) Surgical History Surgical History History of bowel resection History of cholecystectomy History of hip replacement Tear of medial meniscus of left knee Partial meniscectomy March 05, 2022 Family History Family History Father Heart disease Hypertension Mother Hypertension Family history of thyroid disease Sibling Family history of thyroid disease Grandparent Hypertension Heart disease Family history of cancer Social History Social History Smoking status: Never smoker Second hand tobacco smoke exposure: No Alcohol intake: current Drinks per week: 2 Substance use: never Substance use type: does not use Do You Feel Safe in your Home?: Yes Lack of Transportation: No Lack of Food: Never True Current Housing: I Have Housing Concerned About Future Housing: No Difficulty Paying Gas/Electric Bills: No Difficulty Paying for Meds: No Currently Unemployed: No Education: Bachelor's Degree Difficulty w/ Childcare or Family Care: No Living arrangements: with family Occupation/Education: occupation 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 Informed Consent: The patient's anesthetic plan and its attendant risks and benefits were discussed with the patient/family/POA. Questions were solicited and answers provided to the satisfaction of the patient/family/POA.
[2023-09-26] VITALS (9 sets, daily range): BP systolic 120–143; BP diastolic 67–85; PULSE 60–98; RESP 12–20; TEMP 36.1–36.6; O2SAT 97–100
--- NOTE | ~2023-09-26 | XR_ITS ---
EXAMINATION: XR wrist LT 2V DATE: 09/26/2023 12:12 INDICATION: Left wrist pain and swelling. TECHNIQUE: 2 views of left wrist were obtained. COMPARISON: None. FINDINGS: Bone alignment is normal. No fracture. There is moderate osteoarthritis of first carpometac arpal joint. IMPRESSION: 1. Moderate osteoarthritis of first carpometacarpal joint. Reviewed, dictated and finalized at location A.
--- NOTE | 2023-09-26 07:25 | WPDHPUPDATE1 ---
History and Physical Update Update Date/Time: 09/26/23 07:25 History and Physical has been reviewed, including an updated exam of the patient. There are NO changes in the patient's condition. Swelling and pain at the radial aspect of the hand near the base of the thumb. Possible wrist sprain thumb sprain were extensor tendon injury. Recommend rest ice compression and elevation. Follow up with hand specialist. Okay to proceed with knee arthroscopy. She will not require crutches. Risks, benefits, and alternatives have been discussed and questions answered. Patient agrees to proceed with procedure.
[2023-09-26] MEDS: ACETAMINOPHEN 500 MG TABLET 1000 MG PO (11:39)
--- NOTE | 2023-09-26 12:34 | SUR.PREOP ---
Arrived to surgery with swollen painful left hand and wrist. Very tender to touch. Discussed with OR and did xy of wrist. Was told to proceed getting patient ready for surgery.
[2023-09-26] MEDS: LACTATED RINGERS 1,000 ML 30 ML IV CONT ×2 (12:40→14:25)
[2023-09-26] MEDS: KETOROLAC 15 MG/ML VIAL (*BKC) IV PUSH (12:41)
[2023-09-26] MEDS: ceFAZolin 2 GM/D5W 50 ML 2 GM/50 ML BAG IVPB (13:29)
[2023-09-26] MEDS: BUPIVACAINE/EPINEPHRINE 0.5% 50 ML VIAL 30 ML INFILTRATE (13:52)
--- NOTE | 2023-09-26 14:27 | P.OP_ITS ---
Procedure Note - Detailed Date of Procedure 09/26/23 Pre-op Diagnosis rt knee acute medial meniscal tear Post-op Diagnosis Same (Right knee acute medial and lateral meniscus tears.) Procedure Performed Arthroscopic partial medial and lateral meniscectomies, right knee. Surgeon Parish Erwin MD Director Of Business Systems Noy Claros PA-C Anesthesia General Findings Complex posterior horn medial meniscus tear consistent with the MRI. Small area of grade 2/Iii chondromalacia on the anteromedial femoral condyle. Grade 3/4 chondromalacia on the patella. No significant chondral changes on the weight- bearing medial and lateral articular cartilage. Fairly large and mobile lateral meniscus with inner margin fraying. This was treated with gentle debridement. Description of Procedure The patient was identified and the surgical site confirmed and signed in the preoperative holding area. Antibiotics were started per protocol, and the patient was brought to the operative room and transferred to the OR table. A general anesthetic was administered. Supine position with the operative lower extremity position in the leg rowland after placement of a well padded tourniquet. The leg support was lowered and the contralateral limb was supported with a soft bolster. The knee was prepped and draped in the usual sterile fashion. A time-out was performed. The portal sites were marked and infiltrated with 0.5% Marcaine 20 mL. The limb was exsanguinated and the tourniquet inflated to 300 mL Hg. Standard inferolateral and inferomedial portals were established. Inflow was obtained with the saline pump. The camera was introduced. Diagnostic inspection of the joint was accomplished. The menisci were debrided with the arthroscopic shaver and punches until stable. The radiofrequency probe was also used for further d?bridement. Gentle chondroplasty on the anteromedial femoral condyle was performed and this was lightly treated with the radiofrequency probe. The edges of the partial-thickness defect were stable. The arthroscopic instruments were removed. The tourniquet released and wounds closed with subcutaneous 4-0 Monocryl absorbable suture. Steri strips and a sterile dressing were applied. A light elastic wrap was placed. The patient was extubated and brought to the recovery room in stable condition. Estimated Blood Loss 5 Drains No Complications No immediate complications Condition Stable Disposition PACU [facility] Billing Surgery - Charge Forward: Surgery Billing
[2023-09-26] MEDS: fentaNYL CITRATE INJ (*CRX) 100 MCG/2 ML VIAL 25 MCG IV PUSH (14:48)
[2023-09-26] MEDS: oxyCODONE HCL (*CRX) 5 MG TAB IR PO (15:46)
== END 2023-09-26 16:16 | disposition home or self-care (01) ==
PROVIDERS: Visit Provider Orthopaedic Surgery
PROC: (CPT 29870; principal; 2023-09-26 13:30)
DX: M23.321 Other meniscus derangements, posterior horn of medial meniscus, right knee (principal); M23.361 Other meniscus derangements, other lateral meniscus, right knee; M94.261 Chondromalacia, right knee; E03.9 Hypothyroidism, unspecified; Z86.73 Personal history of transient ischemic attack (TIA), and cerebral infarction without residual deficits
CPT/HCPCS: 29880; 73100; A9270; J0690; J1100; J1885; J2250; J2405; J2704; J3010; J7120

== ENCOUNTER 2023-10-11 14:05 | Outpatient (CLI) | payer MEDICARE, OTHER, SELFPAY ==
--- NOTE | ~2023-10-11 | MM_ITS ---
EXAMINATION: MM screening [facility] BI w [facility] HISTORY: Screening mammogram TECHNIQUE: Craniocaudal and mediolateral oblique 3-D tomosynthesis images were obtained and synthetic 2-D images were generated. Right rotated lateral craniocaudal view. CAD analysis was submitted and i nterpreted. COMPARISON: No prior mammogram is available for comparison at this institution. BREAST PARENCHYMAL COMPOSITION: There are scattered areas of fibroglandular density. FINDINGS: There is no evidence of suspicious mass, calcification, or architectural distortion to sugg est malignancy in either breast IMPRESSION: 1. No mammographic evidence of malignancy. 2. Recommend routine screening mammography in one year. BI-RADS Category 1: Negative Reviewed, dictated and finalized at location [facility].
== END 2023-10-11 14:06 | disposition home or self-care (01) ==
LOC: ANHIMG 14:08
PROVIDERS: PCP Internal Medicine; Visit Provider Internal Medicine
DX: Z12.31 Encounter for screening mammogram for malignant neoplasm of breast (principal)
CPT/HCPCS: 77063; 77067

== ENCOUNTER 2023-10-30 08:46 | Outpatient (CLI) | payer MEDICARE, OTHER, SELFPAY ==
--- NOTE | ~2023-10-30 | DEXA_ITS ---
Bone Density Report Name: MARIE LANDAVERDE Age: 68 Sex: Female Ethnicity: Callie Date of : 1955 Indication: monitoring treatment; inflammatory bowel disease; prior fracture; Referring Provider: MARY HANSEN Study: Bone densitometry was performed. Exam Date: October 30, 2023 Accession number: [id number] Bone Density: Region BMD T-score Z-score Classification AP Spine(L1-L4) 1.001 -0.4 1.6 Normal Femoral Neck (Left) 0.722 -1.1 0.6 Osteopenia Total Hip (Left) 1.006 0.5 2.0 Normal World Health Organization criteria for BMD impression classify patients as: Normal (T-score at or above -1.0), Osteopenia (T-score between -1.0 and -2.5), or Osteoporosis (T-score at or below -2.5). Previous Exams: Region Exam Age BMD T-score BMD Change BMD Change Date g/cm2 vs Baseline vs Previous AP Spine (L1-L4) 10/30/2023 68 1.001 -0.4 -0.009 (-0.9%) -0.009 (-0.9%) 07/06/2015 59 1.010 -0.3 Total Hip(Left) 10/30/2023 68 1.006 0.5 0.048 (5.0%)* 0.048 (5.0%)* 07/06/2015 59 0.957 0.1 *Denotes significance at 95% confidence level, LSC for AP Spine = 0.022 g/cm2, LSC for Total Hip = 0.027 g/cm2 Clinical Information Provided by Patient: Have had a previous hip or vertebral fracture Has had a low trauma fracture Is being treated for osteoporosis Has used the following medications: Vitamin D, Calcium, multivitamin Has the following medical conditions: Inflammatory bowel diseases Patient maximum height was 66 No regular weight bearing exercise Drinks caffeinated beverages Onset of menses at age 11 Number of children 3 Impression: The patient has low bone mass, based on the Left Femoral Neck T-score. The patient has risk factors, including: previous fracture. No significant bone loss was observed. Discussion: PATIENT UNDER TREATMENT WITH NO SIGNIFICANT BMD LOSS SINCE LAST EXAM. In an untreated patient, BMD typically declines with age. A lack of decline or gain is usually a sign that treatment is efficacious and fracture risk is reduced. It is important to ask patients whether they are taking their medications and to encourage continued and appropriate compliance with their osteoporosis therapies to reduce fracture risk. It is also important to review their risk factors and encourage appropriate calcium and vitamin D intakes, exercise, fall prevention and other lifestyle measures. Follow-Up: Consider a repeat BMD and Vertebral Fracture Assessment (VFA) exam in 2 years or sooner if medically necessary, to reassess this patient's status. Reported by: KERRI on 10/30/2023 9:03:00 AM. Reviewed, dictated and finalized at [facility]
== END 2023-10-30 08:47 | disposition home or self-care (01) ==
LOC: ANHIMG 08:48
PROVIDERS: PCP Internal Medicine; Visit Provider Internal Medicine
DX: Z78.0 Asymptomatic menopausal state (principal); M85.852 Other specified disorders of bone density and structure, left thigh
CPT/HCPCS: 77080

== ENCOUNTER 2023-11-01 08:30 | Outpatient (RCR) | payer MEDICARE, OTHER, SELFPAY ==
--- NOTE | 2023-10-01 12:11 | PTOPEVAL1 ---
Assessment and note entered by Dileep Chand, PT Evaluation Information Assessment Status Evaluation Diagnosis R knee medial meniscectomy Onset 09/26/23 Subjective Information Reports that she feel she is doing great already. Better already than she was pre-operatively. Knee feels stable but swollen. Currently does not feel that she needs crutches or a walker. She had been having knee issues since about April. Reports that she does feel dizzy today and is unsure why but she does have them with some regularity. Reported Pain Level Pain Score 0: Self Report Assessment PT Clinical Summary Patient presents with signs and symptoms typical of post operative meniscectomy. Minor inflammation noted with minor lack of terminal knee motion. Deficits in gait and knee flexion. Will benefit from skilled therapy to address these deficits to maximize function and pain free ADLs. Plan of Care PT Services Indicated Yes Treatment Frequency and 2x/week for 10 visits Duration These treatments will address the objective and functional deficits as defined above. The patient will be advanced safely and appropriately in order for the patient to progress towards his/her prior level of function. Additional exercises will be introduced and as well as a comprehensive home exercise program upon discharge, if needed, ?to ensure carryover of functional gains achieved in the clinic. This treatment plan has been reviewed and agreement upon by the patient.
--- NOTE | 2023-10-01 12:11 | OPREHPOC ---
Outpatient Therapy Plan of Care This is a Multidisciplinary Plan of Care that may contain components documented by all disciplines (PT, OT, and ST.) PT Problem 1 PT Problem #1 Knowledge Deficit PT Goal 1 Goal [place] with HEP Target Visit 4 PT Problem 2 PT Problem #2 Pain PT Goal 1 Goal Patient will report no pain with sit to stand transfer x5for improved joint mechanics Target Visit 4 PT Problem 3 PT Problem #3 Impaired Range of Motion PT Goal 1 Goal Achieve terminal R knee extension for improved terminal stance of gait cycle Target Visit 8 PT Goal 2 Goal Achieve 130 degrees of R knee flexion for improved foot clearance with ADL performance Target Visit 8 PT Problem 4 PT Problem #4 Edema PT Goal 1 Goal Demonstrate 1 cm+ reduction in R knee joint line edema for soft tissue healing Target Visit 8 PT Goal 2 Goal Ambulate with even stride length bilaterally Target Visit 8
--- NOTE | 2023-10-11 10:31 | PCPTNOTE ---
Patient cancelled today's therapy session.
--- NOTE | 2023-10-24 12:03 | PCPTNOTE ---
Patient canceled appointment this date due to thinking she is doing well.
--- NOTE | 2023-11-01 09:25 | OPREHPOC ---
Outpatient Therapy Plan of Care This is a Multidisciplinary Plan of Care that may contain components documented by all disciplines (PT, OT, and ST.) PT Problem 1 PT Problem #1 Knowledge Deficit PT Goal 1 Goal [place] with HEP Target Visit 4 Progress Met PT Problem 2 PT Problem #2 Pain PT Goal 1 Goal Patient will report no pain with sit to stand transfer x5for improved joint mechanics Target Visit 4 Progress Met PT Problem 3 PT Problem #3 Impaired Range of Motion PT Goal 1 Goal Achieve terminal R knee extension for improved terminal stance of gait cycle Target Visit 8 Progress Met PT Goal 2 Goal Achieve 130 degrees of R knee flexion for improved foot clearance with ADL performance Target Visit 8 Progress Met PT Problem 4 PT Problem #4 Edema PT Goal 1 Goal Demonstrate 1 cm+ reduction in R knee joint line edema for soft tissue healing Target Visit 8 Progress Met PT Goal 2 Goal Ambulate with even stride length bilaterally Target Visit 8 Progress Met
--- NOTE | 2023-11-01 09:25 | PTOPEVAL1 ---
Assessment and note entered by Dileep Chand, PT Evaluation Information Assessment Status Discharge Diagnosis R knee medial menisectomy Onset 09/26/23 Subjective Information Reports that she rarely has to think about anything with her knee. She has been consistently feeling good with ADLs and walking. Pain has been minimal to non existent. Feels she can run errands with no concerns. She is requesting discharge at this time. Reported Pain Level Pain Score 1: Self Report Assessment PT Clinical Summary Patient has met all goals for therapy and is suitable for discharged at this time to [facility]. No concerns at this time and updates were made for her HEP. Plan of Care PT Services Indicated Yes Treatment Frequency and 2x/week for 10 visits Duration These treatments will address the objective and functional deficits as defined above. The patient will be advanced safely and appropriately in order for the patient to progress towards his/her prior level of function. Additional exercises will be introduced and as well as a comprehensive home exercise program upon discharge, if needed, ?to ensure carryover of functional gains achieved in the clinic. This treatment plan has been reviewed and agreement upon by the patient.
== END 2023-11-01 09:52 | disposition home or self-care (01) ==
LOC: ANHGOSHPT 08:30
PROVIDERS: Visit Provider Orthopaedic Surgery
DX: Z48.89 Encounter for other specified surgical aftercare (principal)
CPT/HCPCS: 97016; 97110; 97112; 97140; 97161; 97530